=== PATIENT | female | born 1975 | race African-American/Black ===

== ENCOUNTER 2016-09-08 22:42 | Observation (INO) | payer MEDICAID, OTHER ==
[~2016-09-08] VITALS: Ht 170.2 cm; Wt 120.0 kg
[~2016-09-08 22:42] MED LIST: ALPR.25 PO; CIME200 PO; GLUCTAB PO; LEVO75TA41 PO; PROV10TA PO
[2016-09-08 22:44] VITALS: BP 163/98; PULSE 97; RESP 20; TEMP 98.7; O2SAT 100
--- NOTE | 2016-09-08 23:27 | PD ---
HPI Chief Complaint: Chest Pain Time Seen by Provider: 23:12 Travel History International Travel<30 days: No Contact w/Intl Traveler<30days: No Traveled to known affect area: No History of Present Illness HPI The patient is a 41-year-old [place] female who presents emergency department for chest pain. The patient was at work earlier tonight when she developed chest pain. The patient states the chest pain was substernal to left- sided, radiated to the left aspect of the neck and into the left arm. The pain was dull and achy and assisted with mild shortness of breath and nausea. The patient states her last week she has not been feeling well, is had some left scapular pain and left shoulder pain which is been achy in nature. The patient does note her pain is worse with exertion and mildly alleviated at rest. The patient took 4 baby aspirin prior to arrival. The patient does have a history of diabetes and was recently placed on insulin, however, is not taking the insulin because of the side effects she read about. The patient was recently on metformin. The patient denies any known history of coronary artery disease, hypertension, or tobacco use. She does have a history of hyperlipidemia but is not currently treated with medications. She denies any significant early family history of coronary artery disease. PFSH Past Medical History Anxiety: Yes Depression: Yes Heart Rhythm Problems: Yes (HEART PALPITATION) Cardiac Catheterization: No Cardiovascular Problems: Yes (PALPITATIONS) High Cholesterol: Yes Chest Pain: Yes Congestive Heart Failure: No Diabetes: Yes (INSULIN DEPENDENT/METFORMIN) Patient Takes Glucophage: Yes Diminished Hearing: No GERD: Yes Headaches: Yes Immunizations Current: Yes Migraines: Yes Sleep Apnea: Yes Influenza Vaccination: No PNEUMOCCOCAL Vaccine (Year): 2 ?: Not LMP: 08/12/16 : 3 Para: 3 Tubal Ligation: Yes Past Surgical History Abdominal Surgery: Yes (TUBAL) Cholecystectomy: Yes Coronary Artery Bypass Graft: No Gynecologic Surgery: Yes (TUBAL LIGATION) Family History Family Myocardial Infarction: No Social History Alcohol Use: Yes (RARELY) Tobacco Use: No Substance Use: No Allergies-Medications (Allergen,Severity, Reaction): Coded Allergies: Amoxicillin (Verified Allergy, Severe, "HOT FLASHES", 09/08/16) Demerol (Verified Allergy, Severe, RASH, 09/08/16) Toradol (Verified Allergy, Severe, ANXIETY, 09/08/16) Zantac (Verified Allergy, Severe, SOB, 09/08/16) Prilosec (Verified Allergy, Unknown, 09/08/16) Reported Meds & Prescriptions Reported Meds & Active Scripts Active Xanax 0.25 Mg (Alprazolam) 0.25 Mg Tab 0.25 Mg PO Q8 PRN Reported Provera (Medroxyprogesterone Acetate) 10 Mg Tab 10 Mg PO DAILY Levothroid (Levothyroxine Sodium) 75 Mcg Tab 25 Mcg PO DAILY Metformin Hcl (Metformin HCl) 500 Mg Tab 1,000 Mg PO BID Tagamet 200 Mg Tab (Cimetidine) 200 Mg Tab 200 Mg PO BID Review of Systems Except as stated in HPI: all other systems reviewed are Neg General / Constitutional: No: Fever HENT: No: Lightheadedness Cardiovascular: Positive: Chest Pain or Discomfort, No: Diaphoresis Respiratory: Positive: Shortness of Breath Gastrointestinal: Positive: Nausea Musculoskeletal: Positive: Weakness, Pain (left arm pain) Neurologic: No: Focal Abnormalities Physical Exam Narrative GENERAL: Awake, alert, mildly anxious 41-year-old female who appears her stated age and is in no acute respiratory distress. Mildly anxious. SKIN: No obvious rash on exposed skin. HEAD: Atraumatic. Normocephalic. EYES: Pupils equal and round. No scleral icterus. No injection or drainage. ENT: No nasal bleeding or discharge. Mucous membranes pink and moist. NECK: Trachea midline. No JVD. CARDIOVASCULAR: Regular rate and rhythm. No murmur appreciated. Palpation of the left chest wall produces pain, but does not reproduce the pain she has at rest or with exertion. RESPIRATORY: No accessory muscle use. Clear to auscultation. Breath sounds equal bilaterally. GASTROINTESTINAL: Abdomen soft, non-tender, nondistended. No rebound tenderness. MUSCULOSKELETAL: No obvious deformities. No clubbing. No cyanosis. No edema. NEUROLOGICAL: Awake and alert. No obvious cranial nerve deficits. Motor grossly within normal limits. Normal speech. PSYCHIATRIC: Appropriate mood and affect; insight and judgment normal. Data Data Last Documented VS Vital Signs Date Time Temp Pulse Resp B/P Pulse Ox O2 Delivery O2 Flow Rate FiO2 09/08/16 23:23 100 Nasal Cannula 2 09/08/16 22:44 98.7 97 20 163/98 Orders Electrocardiogram (09/08/16 23:20) Ckmb (Isoenzyme) Profile (09/08/16 23:20) Complete Blood Count With Diff (09/08/16 23:20) Comprehensive Metabolic Panel (09/08/16 23:20) Magnesium (Mg) (09/08/16 23:20) Prothrombin Time / Inr (Pt) (09/08/16 23:20) Act Partial Throm Time (Ptt) (09/08/16 23:20) Troponin I (09/08/16 23:20) Lipase (09/08/16 23:20) Chest, Single Ap (09/08/16 23:20) Ecg Monitoring (09/08/16 23:20) Bilateral Bp Monitoring (09/08/16 23:20) Iv Access Insert/Monitor (09/08/16 23:20) Oximetry (09/08/16 23:20) Oxygen Administration (09/08/16 23:20) Morphine Inj (Morphine Inj) (09/08/16 23:30) Nitroglycerin 2% Oint (Nitroglycerin 2% (09/08/16 23:30) Sodium Chloride 0.9% Flush (Ns Flush) (09/08/16 23:30) Sodium Chlorid 0.9% 500 Ml Inj (Ns 500 M (09/08/16 23:30) Ondansetron Inj (Zofran Inj) (09/08/16 23:30) Sodium Chlor 0.9% 1000 Ml Inj (Ns 1000 M (09/09/16 00:15) Labs Laboratory Tests Test 09/08/16 23:30 White Blood Count 8.2 TH/MM3 Red Blood Count 4.64 MIL/MM3 Hemoglobin 12.0 GM/DL Hematocrit 37.6 % Mean Corpuscular Volume 80.9 FL Mean Corpuscular Hemoglobin 25.9 PG Mean Corpuscular Hemoglobin 32.0 % Concent Red Cell Distribution Width 15.4 % Platelet Count 347 TH/MM3 Mean Platelet Volume 8.4 FL Neutrophils (%) (Auto) 53.1 % Lymphocytes (%) (Auto) 37.8 % Monocytes (%) (Auto) 7.0 % Eosinophils (%) (Auto) 0.9 % Basophils (%) (Auto) 1.2 % Neutrophils # (Auto) 4.4 TH/MM3 Lymphocytes # (Auto) 3.1 TH/MM3 Monocytes # (Auto) 0.6 TH/MM3 Eosinophils # (Auto) 0.1 TH/MM3 Basophils # (Auto) 0.1 TH/MM3 CBC Comment DIFF FINAL Differential Comment Prothrombin Time 10.6 SEC Prothromb Time International 1.0 RATIO Ratio Activated Partial 29.6 SEC Thromboplast Time Sodium Level 136 MEQ/L Potassium Level 3.8 MEQ/L Chloride Level 101 MEQ/L Carbon Dioxide Level 25.0 MEQ/L Anion Gap 10 MEQ/L Blood Urea Nitrogen 9 MG/DL Creatinine 1.09 MG/DL Estimat Glomerular Filtration 68 ML/MIN Rate Random Glucose 236 MG/DL Calcium Level 9.3 MG/DL Magnesium Level 1.9 MG/DL Total Bilirubin LESS THAN 0.1 MG/DL Aspartate Amino Transf 9 U/L (AST/SGOT) Alanine Aminotransferase 21 U/L (ALT/SGPT) Alkaline Phosphatase 84 U/L Total Creatine Kinase 64 U/L Troponin I LESS THAN 0.02 NG/ML Total Protein 8.4 GM/DL Albumin 3.7 GM/DL Lipase 184 U/L Exceptions Acute Myocardial Infarction ASA Not Given on Arrival: Already taken by patient MDM Medical Decision Making Medical Screen Exam Complete: Yes Emergency Medical Condition: Yes Medical Record Reviewed: Yes Interpretation(s) EKG reveals normal sinus rhythm with a rate of 83. Inverted T waves noted in lead 3. Laboratory Tests Test 09/08/16 23:30 White Blood Count 8.2 TH/MM3 Red Blood Count 4.64 MIL/MM3 Hemoglobin 12.0 GM/DL Hematocrit 37.6 % Mean Corpuscular Volume 80.9 FL Mean Corpuscular Hemoglobin 25.9 PG Mean Corpuscular Hemoglobin 32.0 % Concent Red Cell Distribution Width 15.4 % Platelet Count 347 TH/MM3 Mean Platelet Volume 8.4 FL Neutrophils (%) (Auto) 53.1 % Lymphocytes (%) (Auto) 37.8 % Monocytes (%) (Auto) 7.0 % Eosinophils (%) (Auto) 0.9 % Basophils (%) (Auto) 1.2 % Neutrophils # (Auto) 4.4 TH/MM3 Lymphocytes # (Auto) 3.1 TH/MM3 Monocytes # (Auto) 0.6 TH/MM3 Eosinophils # (Auto) 0.1 TH/MM3 Basophils # (Auto) 0.1 TH/MM3 CBC Comment DIFF FINAL Differential Comment Prothrombin Time 10.6 SEC Prothromb Time International 1.0 RATIO Ratio Activated Partial 29.6 SEC Thromboplast Time Sodium Level 136 MEQ/L Potassium Level 3.8 MEQ/L Chloride Level 101 MEQ/L Carbon Dioxide Level 25.0 MEQ/L Anion Gap 10 MEQ/L Blood Urea Nitrogen 9 MG/DL Creatinine 1.09 MG/DL Estimat Glomerular Filtration 68 ML/MIN Rate Random Glucose 236 MG/DL Calcium Level 9.3 MG/DL Magnesium Level 1.9 MG/DL Total Bilirubin LESS THAN 0.1 MG/DL Aspartate Amino Transf 9 U/L (AST/SGOT) Alanine Aminotransferase 21 U/L (ALT/SGPT) Alkaline Phosphatase 84 U/L Total Creatine Kinase 64 U/L Troponin I LESS THAN 0.02 NG/ML Total Protein 8.4 GM/DL Albumin 3.7 GM/DL Lipase 184 U/L Chest x-rays unremarkable Differential Diagnosis differential diagnosis includes acute coronary syndrome, GERD, esophageal spasm , anxiety, pulmonary embolism, musculoskeletal pain. Narrative Course IV was established, labs are drawn and sent, and the patient was placed on cardiac telemetry monitoring and continuous pulse oximetry monitoring. EKG was ordered and interpreted. The patient took 4 baby aspirin prior to arrival, therefore, was administered morphine, Zofran, and Nitropaste in the emergency department. Chest x-ray was obtained. Chest x-ray was unremarkable. EKG revealed normal sinus rhythm with inverted T waves in lead 3, no other evidence of ischemia. The patient's initial troponin was negative. I reviewed the EMR, the patient had a negative nuclear medicine myocardial perfusion scan performed on May 31, 2012 which was unremarkable, revealed an EF of 54%. The patient does have risk factors, hypertension, blood pressure was elevated upon arrival, and diabetes. She also has a history of mildly elevated cholesterol per her report. The patient was reevaluated after the initial set of troponins , she still complained of mild nausea and "not feeling well". The patient will be 23 hour observation to the chest pain Center. There is no hypoxia or significant tachycardia, I doubt pulmonary embolism. Physician Communication Physician Communication The patient will be 23 hour observation to the chest pain center for serial cardiac enzymes and further evaluation by cardiology. Diagnosis Primary Impression: Chest pain Qualified Code: R07.9 - Chest pain, unspecified type Admitting Information Admitting Physician Requests: Observation Condition: Stable Pierre Lopez MD Sep 08, 2016 23:27
[2016-09-08] MEDS ORDERED: NITROGLYCERIN 2% OINT 1 GM PACKET TOP ONE (23:30)
[2016-09-08] MEDS ORDERED: SODIUM CHLORIDE 0.9% FLUSH 10 ML FLUSH IVF PRN (23:30)
[2016-09-08] MEDS ORDERED: MORPHINE SULFATE 4 MG/ML INJ IV PUSH ONE (23:30)
[2016-09-08] MEDS ORDERED: SODIUM CHLORID 0.9% 500 ML INJ 500 ML IV ONE (23:30)
[2016-09-08] MEDS ORDERED: ONDANSETRON HCL 4 MG/2 ML VIAL IV PUSH ONE (23:30)
[2016-09-08 23:52] LABS: AUTOMATED NEUTROPHIL # 4.4 TH/MM3 (1.8-7.7); BASOPHIL # 0.1 TH/MM3 (0-0.2); BASOPHIL % 1.2 % (0.0-2.0); EOSINOPHIL # 0.1 TH/MM3 (0-0.4); EOSINOPHIL % 0.9 % (0.0-4.0); HEMATOCRIT 37.6 % (35.0-46.0); HEMO FLAGS DIFF FINAL; LYMPH % 37.8 % (9.0-44.0); LYMPHOCYTE # 3.1 TH/MM3 (1.0-4.8); MEAN CELL VOLUME 80.9 FL (80.0-100.0); MEAN CORPUSCULAR HEMOGLOBIN 25.9 PG (27.0-34.0); NEUT % 53.1 % (16.0-70.0); PLATELET COUNT 347 TH/MM3 (150-450); RED BLOOD COUNT 4.64 MIL/MM3 (4.00-5.30); RED CELL DISTRIBUTION WIDTH 15.4 % (11.6-17.2); WHITE BLOOD COUNT 8.2 TH/MM3 (4.0-11.0)
[2016-09-08 23:57] LABS: APTT (PATIENT) 29.6 SEC (24.3-30.1); PROTHROMBIN TIME - PATIENT 10.6 SEC (9.8-11.6)
[2016-09-09] VITALS (11 sets, daily range): BP systolic 96–130; BP diastolic 56–86; PULSE 50–91; RESP 18–20; TEMP 97.5–98.9; O2SAT 94–100
[2016-09-09 00:08] LABS: ANION GAP 10 MEQ/L (5-15); AST (GOT) 9 U/L (15-37); BLOOD UREA NITROGEN 9 MG/DL (7-18); CHLORIDE 101 MEQ/L (98-107); GLOMERULAR FILTRATION RATE 68 ML/MIN (>89); MAGNESIUM 1.9 MG/DL (1.5-2.5); POTASSIUM 3.8 MEQ/L (3.5-5.1); SODIUM (NA) 136 MEQ/L (136-145)
[2016-09-09 00:13] LABS: ALKALINE PHOSPHATASE 84 U/L (45-117); ALT (GPT) 21 U/L (10-53); TOTAL BILIRUBIN ADULT LESS THAN 0.1 MG/DL (0.2-1.0)
[2016-09-09 00:14] LABS: CREATINE KINASE 64 U/L (26-192)
[2016-09-09] MEDS ORDERED: SODIUM CHLOR 0.9% 1000 ML INJ 1,000 ML IV ONE (00:15)
[2016-09-09] MEDS ORDERED: MORPHINE SULFATE 4 MG/ML INJ IV PRN (00:30)
[2016-09-09] MEDS ORDERED: ACETAMINOPHEN 500 MG CPLT PO PRN (00:30)
[2016-09-09] MEDS ORDERED: SODIUM CHLORIDE 0.9% FLUSH 10 ML FLUSH IV FLUSH PRN (00:30)
[2016-09-09] MEDS ORDERED: ONDANSETRON HCL 4 MG/2 ML VIAL IV PRN (00:30)
[2016-09-09] MEDS ORDERED: NITROGLYCERIN 0.4 MG SL 25 TABS/BTL SL PRN (00:30)
[2016-09-09] MEDS ORDERED: ACETAMINOPHEN/HYDROcodone 325 MG/7.5 MG TAB PO PRN (00:30)
--- NOTE | 2016-09-09 00:47 | RADRPT ---
EXAM DATE/TIME: 09/08/2016 23:36 [facility] COMPARISON: CHEST SINGLE AP, September 10, 2013, 22:47. INDICATIONS : Chest pain. MEDICAL HISTORY : None. SURGICAL HISTORY : None. ENCOUNTER: Initial ACUITY: 1 day PAIN SCORE: 7/10 LOCATION: Bilateral chest FINDINGS: A single view of the chest demonstrates the lungs to be symmetrically aerated without evidence of mas s, infiltrate or effusion. The cardiomediastinal contours are unremarkable. Osseous structures are intact. CONCLUSION: No acute disease. Donnie Doherty MD on September 09, 2016 at 0:45 Board Certified Radiologist. This report was verified electronically.
[2016-09-09] MEDS ORDERED: LEVO75TA3 PO (02:09)
[2016-09-09] MEDS ORDERED: PROV10TA PO (02:09)
[2016-09-09] MEDS ORDERED: METF1000 PO (02:09)
[2016-09-09] MEDS ORDERED: CIME200T23 PO (02:09)
[2016-09-09 03:28] LABS: CREATINE KINASE 54 U/L (26-192)
[2016-09-09 06:03] LABS: CREATINE KINASE 42 U/L (26-192)
[2016-09-09] MEDS ORDERED: SODIUM CHLORIDE 0.9% FLUSH 10 ML FLUSH IV FLUSH SCH (09:00)
[2016-09-09] MEDS ORDERED: ASPIRIN 325 MG TAB PO SCH (09:00)
--- NOTE | 2016-09-09 10:52 | HHI.HP ---
HPI Primary Care Physician Layo Jj DO Chief Complaint Chest pain History of Present Illness This is a 41-year-old female that presents to the ED with a clinical left-sided chest discomfort that radiated down her left arm into her back. It began yesterday. The last about 20 minutes but recurred a couple more times. Certain movements seem to worsen it. She was short of breath with it at times. No nausea or diaphoresis. Denies recent illness. Denies fevers or chills. Review of Systems General: Patient denies fevers, chills recent, and recent travel HEENT: Patient denies headache, sore throat, difficulty swallowing. Cardiovascular: Has the chest discomfort as mentioned above. Denies sensation of heart beating rapidly or irregularly. No syncope. Denies diaphoresis. Respiratory: She was little short of breath. She states also at times it hurts more to take a deep breath. Denies coughing wheezing or hemoptysis. GI: Patient denies nausea, vomiting, diarrhea, abdominal pain, bloody stools. Musculoskeletal: Patient denies joint pain or edema. Denies calf pain or edema. Complains of a left-sided back pain worsened with movements. Neurovascular: Patient denies numbness, tingling, weakness in extremities. Denies headache. Endocrine: Denies polyuria and polydipsia. Hematologic: Denies easy bruising. Skin: Denies rash or itching. Past Family Social History Allergies: Coded Allergies: Amoxicillin (Verified Allergy, Severe, "HOT FLASHES", 09/08/16) Demerol (Verified Allergy, Severe, RASH, 09/08/16) Toradol (Verified Allergy, Severe, ANXIETY, 09/08/16) Zantac (Verified Allergy, Severe, SOB, 09/08/16) Prilosec (Verified Allergy, Unknown, 09/08/16) Past Medical History Diabetes, hypothyroidism. She states she has some kidney issues but does not really nothing more specific about it. Denies known CAD and hypertension. Past Surgical History Cholecystectomy and tubal ligation. Reported Medications Reported Meds & Active Scripts Active Reported Metformin (Metformin HCl) 1,000 Mg Tab 1,000 Mg PO BIDPC With meals Provera (Medroxyprogesterone Acetate) 10 Mg Tab 10 Mg PO DAILY Start day 21 Levothyroxine (Levothyroxine Sodium) 75 Mcg Tab 75 Mcg PO DAILY Tagamet Hb (Cimetidine) 200 Mg Tab 200 Mg PO DAILY Active Ordered Medications Current Medications Medications (Trade) Dose Ordered Sig/Kriss Route Start Time Stop Time Status Last Admin (NS Flush) 2 ml UNSCH PRN IV FLUSH 09/09/16 00:30 (NS Flush) 2 ml BID IV FLUSH 09/09/16 09:00 09/09/16 08:37 (Tylenol) 500 mg Q4H PRN PO 09/09/16 00:30 09/09/16 05:47 ([place] 7.5-325 Mg) 1 tab Q4H PRN PO 09/09/16 00:30 (Morphine Inj) 2 mg Q4H PRN IV 09/09/16 00:30 (Zofran Inj) 4 mg Q6H PRN IV 09/09/16 00:30 (Nitrostat Sl) 0.4 mg Q5M PRN SL 09/09/16 00:30 (Aspirin) 325 mg DAILY PO 09/09/16 09:00 09/09/16 08:36 Family History Denies family history of CAD. Social History Patient is a nonsmoker. Physical Exam Vital Signs Vital Signs Date Time Temp Pulse Resp B/P Pulse Ox O2 Delivery O2 Flow Rate FiO2 09/09/16 07:14 98.7 91 19 110/57 94 09/09/16 05:25 98.5 88 20 96/56 97 09/09/16 03:03 83 09/09/16 02:37 98.9 86 20 118/64 95 09/09/16 02:00 88 18 130/74 100 Nasal Cannula 2 09/09/16 01:54 16 09/09/16 01:00 89 18 129/82 100 Nasal Cannula 2 09/09/16 00:51 99 Nasal Cannula 2.00 09/09/16 00:00 86 20 123/86 98 Nasal Cannula 2 09/08/16 23:23 100 Nasal Cannula 2 09/08/16 22:44 98.7 97 20 163/98 100 Physical Exam GENERAL: This is a well-nourished, well-developed patient, in no apparent distress. Patient speaks in clear complete sentences. Patient is pleasant. HEENT: Head is atraumatic and normocephalic. Neck is supple without lymphadenopathy and trachea is midline. No JVD or carotid bruits. CARDIOVASCULAR: Regular rate and rhythm without murmurs, gallops, or rubs. RESPIRATORY: Clear to auscultation. Breath sounds equal bilaterally. No wheezes , rales, or rhonchi. Chest wall is nontender. No use of accessory muscles. GASTROINTESTINAL: Abdomen is nontender, nondistended. Abdomen soft. No obvious pulsatile mass or bruit. No CVA tenderness. Strong femoral pulses bilaterally. Normal bowel sounds in all quadrants. MUSCULOSKELETAL: Patient is moving upper and lower extremities freely. No calf tenderness or edema, no Homans sign. Strong pulses in upper and lower extremities. NEUROLOGICAL: Patient is alert and oriented. Cranial nerves 2-12 are grossly intact. No focal deficits and speech is clear. SKIN: No rash and turgor is normal. Laboratory Laboratory Tests Test 09/08/16 09/09/16 09/09/16 09/09/16 23:30 02:30 05:17 08:48 White Blood Count 8.2 Red Blood Count 4.64 Hemoglobin 12.0 Hematocrit 37.6 Mean Corpuscular Volume 80.9 Mean Corpuscular Hemoglobin 25.9 Mean Corpuscular Hemoglobin 32.0 Concent Red Cell Distribution Width 15.4 Platelet Count 347 Mean Platelet Volume 8.4 Neutrophils (%) (Auto) 53.1 Lymphocytes (%) (Auto) 37.8 Monocytes (%) (Auto) 7.0 Eosinophils (%) (Auto) 0.9 Basophils (%) (Auto) 1.2 Neutrophils # (Auto) 4.4 Lymphocytes # (Auto) 3.1 Monocytes # (Auto) 0.6 Eosinophils # (Auto) 0.1 Basophils # (Auto) 0.1 CBC Comment DIFF FINAL Differential Comment Prothrombin Time 10.6 Prothromb Time International 1.0 Ratio Activated Partial 29.6 Thromboplast Time Sodium Level 136 Potassium Level 3.8 Chloride Level 101 Carbon Dioxide Level 25.0 Anion Gap 10 Blood Urea Nitrogen 9 Creatinine 1.09 Estimat Glomerular Filtration 68 Rate Random Glucose 236 Calcium Level 9.3 Magnesium Level 1.9 Total Bilirubin LESS THAN 0.1 Aspartate Amino Transf 9 (AST/SGOT) Alanine Aminotransferase 21 (ALT/SGPT) Alkaline Phosphatase 84 Total Creatine Kinase 64 54 42 Troponin I LESS THAN 0.02 LESS THAN 0.02 LESS THAN 0.02 Total Protein 8.4 Albumin 3.7 Lipase 184 D-Dimer Quantitative (PE/DVT) 0.36 Result Diagram: 09/08/16 2330 09/08/16 2330 Imaging Last 24 hours Impressions Chest X-Ray 09/08/16 2320 Signed Impressions: Service Date/Time: Thursday, September 08, 2016 23:36 - CONCLUSION: No acute disease. Donnie Doherty MD Course EKGs have sinus rhythm without significant ST segment depressions or elevations. Assessment and Plan Assessment and Plan * Chest pain: Patient had serial cardiac enzymes and EKGs for ruling out purposes. D-dimer was negative. Urine beta-hCG is negative. She has been seen by Dr. Chester Best of cardiology in the chest pain center and will undergo a Lexiscan. She'll likely be discharged home if her stress test were to be nonischemic. She should follow-up with her primary care physician. * Diabetes: We'll cover with sliding S[place] coverage. She should follow diabetic diet. * Hypothyroidism: Continue current medication. Patient is agreeable to this plan. She is stable at this time. Santos Naylor Sep 09, 2016 10:52
[2016-09-09] MEDS ORDERED: REGADENOSON INJ 0.4 MG/5 ML SYR ONE (11:30)
[2016-09-09] MEDS ORDERED: AMINOPHYLLINE INJ 250 MG/10 ML VIAL ONE (11:49)
[2016-09-09] MEDS ORDERED: DEXTROSE 50% IN WATER 50 ML VIAL(D50) IV PRN (12:30)
[2016-09-09] MEDS ORDERED: GLUCAGON 1 MG/ML VIAL IM/SQ PRN (12:30)
--- NOTE | 2016-09-09 12:54 | RADRPT ---
EXAM DATE/TIME: 09/09/2016 10:31 [facility] COMPARISON: MYOCARDIAL PERF PHARM SPECT, GATED W/EF, May 31, 2012, 11:32. INDICATIONS : Substernal chest pain radiating to left neck and arm with dyspnea and nausea. Angina. DOSE: 35 mCi Tc99m Myoview at stress. 11 mCi Tc99m Myoview at rest. 0.4 mg Lexiscan STRESS SYMPTOMS: Chest pain and dyspnea. MEDICATIONS: 1.) 100 mg Aminophylline IV EJECTION FRACTION: 55% MEDICAL HISTORY : Gastroesophageal reflux disease. Diabetes mellitus type 2. SURGICAL HISTORY : Cholecystectomy. Tubal ligation. ENCOUNTER: Initial ACUITY: 1 day PAIN SCALE: 4/10 LOCATION: Substernal chest TECHNIQUE: The patient underwent pharmacologic stress with infusion of prescribed dose. Continuous ECG tracing was monitored during stress. Gated SPECT imaging was performed after stress and conventional SPECT i maging was performed at rest. The examination was performed on a SPECT/CT scanner, both attenuation and non-corrected datasets were reviewed. FINDINGS: DISTRIBUTION: The maximum perfused segment at stress is in the anterolateral wall. PERFUSION STUDY: The pattern of perfusion at stress shows some apical thinning. No reversibility to suggest ischemia o r infarct, however. GATED STUDY: There is intact wall motion and thickening without hypokinetic or dyskinetic segments. CONCLUSION: 1. Minimal apical thinning. No reversibility to suggest ischemia. 2. Adequate wall motion throughout with an estimated ejection fraction of 55%. RISK CATEGORY: Low (<1% Annual Mortality Rate) Bautista Clinton MD on September 09, 2016 at 12:45 Board Certified Radiologist. This report was verified electronically.
--- NOTE | 2016-09-09 13:29 | HHI.DCPOC ---
Discharge Care Plan Diagnosis: (1) Chest pain (2) Hypertension (3) DM (diabetes mellitus) (4) Obesity Goals to Promote Your Health * To prevent worsening of your condition and complications * To maintain your health at the optimal level Directions to Meet Your Goals Take your medications as prescribed Follow your dietary instruction Follow activity as directed Keep your appointments as scheduled Take your immunizations and boosters as scheduled If your symptoms worsen call your PCP, if no PCP go to Urgent Care Center or Emergency Room Smoking is Dangerous to Your Health. Avoid second hand smoke Call the 24-hour hour crisis hotline for domestic abuse at Santos Naylor Sep 09, 2016 13:29
--- NOTE | 2016-09-09 13:35 | EKG ---
Date Performed: 09/09/2016 Time Performed: 03:25:23 PTAGE: 41 years EKG: Sinus rhythm BORDERLINE LEFT AXIS DEVIATION BORDERLINE ECG PREVIOUS TRACING : 11/26/2013 02.42 Since previous tracing, no significant change noted DOCTOR: Chester Best Interpretating Date/Time 09/09/2016 13:34:11
--- NOTE | 2016-09-09 13:35 | EKG ---
Date Performed: 09/09/2016 Time Performed: 05:30:10 PTAGE: 41 years EKG: Sinus rhythm BORDERLINE LEFT AXIS DEVIATION BORDERLINE ECG PREVIOUS TRACING : 09/09/2016 03.25 Since previous tracing, no significant change noted DOCTOR: Chester Best Interpretating Date/Time 09/09/2016 13:33:31
--- NOTE | 2016-09-09 13:37 | EKG ---
Date Performed: 09/08/2016 Time Performed: 23:22:47 PTAGE: 41 years EKG: Sinus rhythm MARKED LEFT AXIS DEVIATION ABNORMAL ECG NO PREVIOUS TRACING DOCTOR: Chester Best Interpretating Date/Time 09/09/2016 13:36:34
--- NOTE | 2016-09-09 13:46 | TR ---
Date Performed: 09/09/2016 Time Performed: 11:14:38 DOCTOR: Chester Best DRUG LIST: CLINICAL HISTORY: REASON FOR TEST: CHEST PAIN REASON FOR ENDING: OBSERVATION: CONCLUSION: Lexiscan stress test was performed under standard four minute protocol. [place]ion[place] e was injected one minute prior to ending the test. No electrocardiographic abormalities were present to suggest ischemia. Nuclear imaging and interpretation are pending. COMMENTS:
[2016-09-09] MEDS ORDERED: INSULIN ASPART SUPPLEMENTAL SCALE SQ SCH (16:00)
== END 2016-09-09 16:14 | disposition home or self-care (01) ==
LOC: NEPB 22:42 → NEDA 09-09 00:27 → NEPGCP 09-09 02:31
PROVIDERS: ADMIT Internal Medicine Interventional Cardiology; ATTEND Internal Medicine Interventional Cardiology
DX: R07.9 Chest pain, unspecified (principal); M54.2 Cervicalgia; M79.622 Pain in left upper arm; R11.0 Nausea; R06.02 Shortness of breath; E11.9 Type 2 diabetes mellitus without complications; Z79.4 Long term (current) use of insulin; E78.5 Hyperlipidemia, unspecified; R00.2 Palpitations; E78.00 Pure hypercholesterolemia, unspecified; K21.9 Gastro-esophageal reflux disease without esophagitis; G43.909 Migraine, unspecified, not intractable, without status migrainosus; G47.30 Sleep apnea, unspecified; Z79.899 Other long term (current) drug therapy; I10 Essential (primary) hypertension; R94.31 Abnormal electrocardiogram [ECG] [EKG]
CPT/HCPCS: 71010; 78452; 80053; 82550; 83690; 83735; 84484; 85025; 85379; 85610; 85730; 93005; 93017; 96374; 96375; 99285; A9502; G0378; J0280; J2270; J2405; J2785; J7030; J7040

== ENCOUNTER 2016-10-15 01:53 | Emergency (ER) | payer MEDICAID, OTHER ==
[~2016-10-15] VITALS: Ht 170.2 cm; Wt 123.0 kg
[~2016-10-15 01:53] MED LIST changes: -ALPR.25 PO; -CIME200 PO; +CIME200T23 PO; -GLUCTAB PO; +LEVO75TA3 PO; -LEVO75TA41 PO; +METF1000 PO
[2016-10-15 01:59] VITALS: BP 124/84; PULSE 87; RESP 16; TEMP 98.9; O2SAT 100
[2016-10-15 02:09] VITALS: BP 124/84; PULSE 87; RESP 18; TEMP 98.9; O2SAT 100
--- NOTE | 2016-10-15 02:28 | PD ---
HPI Chief Complaint: ENT Complaint Time Seen by Provider: 02:16 Travel History International Travel<30 days: No Contact w/Intl Traveler<30days: No Traveled to known affect area: No History of Present Illness HPI The patient is a 41-year-old female that complains of dental pain on tooth #17. It is been going on for about a week. She saw a dentist who gave her amoxicillin and, despite being on amoxicillin 5-6 days, she is not getting any relief. She wants a different antibiotic. She has been taking Motrin 600-800 mg 3 times daily. She has had a tubal ligation and cannot be . She denies any fever. She also has a sore throat but this may be from the tooth. The throat itself was not tender, just below the tooth on the left. PFSH Past Medical History Anxiety: Yes Depression: Yes Heart Rhythm Problems: No Cardiac Catheterization: No Cardiovascular Problems: Yes High Cholesterol: No Chest Pain: Yes Congestive Heart Failure: No Diabetes: Yes Patient Takes Glucophage: Yes Diminished Hearing: No GERD: Yes Headaches: Yes Immunizations Current: Yes Migraines: Yes Sleep Apnea: Yes Tetanus Vaccination: Unknown Influenza Vaccination: No PNEUMOCCOCAL Vaccine (Year): 2 ?: Not LMP: 09/15/16 : 3 Para: 3 Tubal Ligation: Yes Past Surgical History Abdominal Surgery: Yes (TUBAL) Cholecystectomy: Yes Coronary Artery Bypass Graft: No Gynecologic Surgery: Yes (TUBAL LIGATION) Family History Family Myocardial Infarction: Yes Social History Alcohol Use: Yes (RARELY) Tobacco Use: No Substance Use: No Allergies-Medications (Allergen,Severity, Reaction): Coded Allergies: Amoxicillin (Verified Allergy, Severe, "HOT FLASHES", 10/15/16) Demerol (Verified Allergy, Severe, RASH, 10/15/16) Toradol (Verified Allergy, Severe, ANXIETY, 10/15/16) Zantac (Verified Allergy, Severe, SOB, 10/15/16) Prilosec (Verified Allergy, Unknown, 10/15/16) Reported Meds & Prescriptions Reported Meds & Active Scripts Active Reported Metformin (Metformin HCl) 1,000 Mg Tab 1,000 Mg PO BIDPC With meals Provera (Medroxyprogesterone Acetate) 10 Mg Tab 10 Mg PO DAILY Start day 21 Levothyroxine (Levothyroxine Sodium) 75 Mcg Tab 75 Mcg PO DAILY Tagamet Hb (Cimetidine) 200 Mg Tab 200 Mg PO DAILY Review of Systems Except as stated in HPI: all other systems reviewed are Neg Physical Exam Narrative GENERAL: Well-nourished, alert and oriented, obese patient in moderate apparent distress with her dental pain. Her vital signs are normal. SKIN: Focused skin assessment warm/dry. HEAD: Normocephalic. EYES: No scleral icterus. No injection or drainage. NECK: Supple, trachea midline. No JVD or lymphadenopathy. CARDIOVASCULAR: Regular rate and rhythm without murmurs, gallops, or rubs. RESPIRATORY: Breath sounds equal bilaterally. No accessory muscle use. GASTROINTESTINAL: Abdomen soft, non-tender, nondistended. MUSCULOSKELETAL: No cyanosis, or edema. BACK: Nontender without obvious deformity. No CVA tenderness. DENTAL: No loose or chipped teeth. No malocclusion. Tooth #17 is exquisitely tender but no drainable abscesses are noted. The patient's throat. Appears to be around the left drainage from the tooth and is likely related to the tooth pain. ENT: The tympanic membranes are clear and there is no TMJ tenderness present. The throat is clear without erythema, abscess or exudate area Data Data Last Documented VS Vital Signs Date Time Temp Pulse Resp B/P Pulse Ox O2 Delivery O2 Flow Rate FiO2 10/15/16 02:12 87 18 10/15/16 02:09 98.9 124/84 100 MDM Medical Decision Making Medical Screen Exam Complete: Yes Emergency Medical Condition: Yes Medical Record Reviewed: Yes Differential Diagnosis Dental infection, TMJ pain, pharyngitis, ear pain Narrative Course The patient has a dental infection. Her throat appears normal. There appears to be no other cause for this pain other than dental. The patient likely is taking too much ibuprofen and will be given Percocet 5 for pain so that she can reduce her ibuprofen dosage. Plan: The patient wants a different antibiotic will be given Cleocin 300 mg 4 times daily. Diagnosis Primary Impression: Pain, dental Additional Instructions: The Cleocin is taken one tablet 4 times daily. We will give you your first dose tonight. Take no more ibuprofen than 600 mg 3 times daily. Breakthrough pain should be treated with the Percocet 5. He not drink alcohol or drive on the Percocet 5. Follow-up with your dentist as scheduled. Med/Other Pt SpecificInfo: Prescription(s) given Scripts Clindamycin (Cleocin)300 Mg Mhe643 Mg PO Q6H 10 Days Ref 0 Prov:Art Saleh MD 10/15/16 Oxycodone-Acetaminophen (Percocet)5-325 mg Tab1 Tab PO Q4H PRN (PAIN) #30 TAB Ref 0 Prov:Art Saleh MD 10/15/16 Disposition: 01 DISCHARGE HOME Condition: Stable Art Saleh MD October 15, 2016 02:28
[2016-10-15] MEDS ORDERED: PERC5TAB12 PO (02:36)
[2016-10-15] MEDS ORDERED: CLEO300C2 PO (02:36)
[2016-10-15] MEDS ORDERED: CLINDAMYCIN 150 MG CAP PO ONE (02:45)
[2016-10-15 02:47] VITALS: BP_SYST 12; BP_SYST 124; BP_DIAS 78; PULSE 80; RESP 18; O2SAT 99
== END 2016-10-15 02:54 | disposition home or self-care (01) ==
LOC: PHED 01:53
DX: K04.7 Periapical abscess without sinus (principal); K08.89 Other specified disorders of teeth and supporting structures; E11.9 Type 2 diabetes mellitus without complications; Z79.84 Long term (current) use of oral hypoglycemic drugs
CPT/HCPCS: 99282

== ENCOUNTER 2017-03-04 23:15 | Emergency (ER) | payer MEDICAID ==
[~2017-03-04] VITALS: Ht 170.2 cm; Wt 123.7 kg
[~2017-03-04 23:15] MED LIST changes: +CLEO300C2 PO; +PERC5TAB12 PO
[2017-03-04 23:20] VITALS: BP 142/75; PULSE 86; RESP 20; TEMP 99.4; O2SAT 98
[2017-03-04] MEDS ORDERED: SODIUM CHLORIDE 0.9% FLUSH 10 ML FLUSH IVF PRN (23:45)
--- NOTE | 2017-03-04 23:52 | PD ---
HPI Chief Complaint: wisdom tooth pain, palpitations Time Seen by Provider: 23:31 Travel History International Travel<30 days: No Contact w/Intl Traveler<30days: No Traveled to known affect area: No History of Present Illness HPI The patient is a 42-year-old female that states she had a dental extraction on her left lower most molar at 4 PM today. They apparently used lidocaine and the local anesthesia. The patient states she had palpitations during the extraction. She states he feels palpitations now. The patient has been here for anxiety/palpitations in the past. She states that amoxicillin gives her "hot flashes". She apparently has been on clindamycin in the past without a problem. She denies any history of heart disease. She states the instruction sheet that she was given told her to take 2 Advil and nothing else and she says this is inadequate for the pain. She was not given any prescription pain medications or antibiotics. The patient states she gets anxiety with ketorolac. PFSH Past Medical History Anxiety: Yes Depression: Yes Heart Rhythm Problems: No Cardiac Catheterization: No Cardiovascular Problems: Yes High Cholesterol: No Chest Pain: Yes Congestive Heart Failure: No Diabetes: Yes Diminished Hearing: No GERD: Yes Headaches: Yes Immunizations Current: Yes Migraines: Yes Sleep Apnea: Yes PNEUMOCCOCAL Vaccine (Year): 2 : 3 Para: 3 Tubal Ligation: Yes Past Surgical History Abdominal Surgery: Yes (TUBAL) Cholecystectomy: Yes Coronary Artery Bypass Graft: No Gynecologic Surgery: Yes (TUBAL LIGATION) Social History Alcohol Use: Yes (RARELY) Tobacco Use: No Substance Use: No Allergies-Medications (Allergen,Severity, Reaction): Coded Allergies: amoxicillin (Unverified Allergy, Severe, "HOT FLASHES", 01/26/17) ketorolac (Unverified Allergy, Severe, ANXIETY, 01/26/17) meperidine (Unverified Allergy, Severe, RASH, 01/26/17) ranitidine (Unverified Allergy, Severe, SOB, 01/26/17) omeprazole (Unverified Allergy, Unknown, 01/26/17) Reported Meds & Prescriptions Reported Meds & Active Scripts Active Reported Levothyroxine (Levothyroxine Sodium) 50 Mcg Tab 50 Mcg PO DAILY Lisinopril 10 Mg Tab 10 Mg PO DAILY Lantus Inj (Insulin Glargine) 1,000 Unit/10 Ml Vial 38 Units SQ HS Metformin (Metformin HCl) 1,000 Mg Tab 1,000 Mg PO BIDPC With meals Tagamet Hb (Cimetidine) 200 Mg Tab 200 Mg PO DAILY Review of Systems Except as stated in HPI: all other systems reviewed are Neg Physical Exam Narrative GENERAL: The patient is alert, anxious, oriented 3, obese in slight apparent distress with her dental pain. Her vital signs are normal. SKIN: Focused skin assessment warm/dry. HEAD: Atraumatic. Normocephalic. EYES: Pupils equal and round. No scleral icterus. No injection or drainage. ENT: No nasal bleeding or discharge. Mucous membranes pink and moist. NECK: Trachea midline. No JVD. CARDIOVASCULAR: Regular rate and rhythm. No murmur appreciated. RESPIRATORY: No accessory muscle use. Clear to auscultation. Breath sounds equal bilaterally. GASTROINTESTINAL: Abdomen soft, non-tender, nondistended. Hepatic and splenic margins not palpable. MUSCULOSKELETAL: No obvious deformities. No clubbing. No cyanosis. No edema. NEUROLOGICAL: Awake and alert. No obvious cranial nerve deficits. Motor grossly within normal limits. Normal speech. PSYCHIATRIC: Appropriate mood and affect; insight and judgment normal. DENTAL: No loose or chipped teeth. No malocclusion. The left lower most wisdom tooth has been removed and the socket appears clean. Data Data Last Documented VS Vital Signs Date Time Temp Pulse Resp B/P (MAP) Pulse Ox O2 Delivery O2 Flow Rate FiO2 03/05/17 00:04 20 03/05/17 00:03 83 154/88 (110) 99 03/04/17 23:53 Room Air 03/04/17 23:20 99.4 Orders Orders Electrocardiogram (03/04/17 23:31) Basic Metabolic Panel (Bmp) (03/04/17 23:31) Ckmb (Isoenzyme) Profile (03/04/17 23:31) Complete Blood Count With Diff (03/04/17 23:31) Magnesium (Mg) (03/04/17 23:31) Troponin I (03/04/17 23:31) Ecg Monitoring (03/04/17 23:31) Iv Access Insert/Monitor (03/04/17 23:31) Oximetry (03/04/17 23:31) Oxygen Administration (03/04/17 23:31) Sodium Chloride 0.9% Flush (Ns Flush) (03/04/17 23:45) Chest, Pa & Lat (03/04/17 23:31) Beta Hcg (Quant/Titer) (03/04/17 23:31) Ketorolac Inj (Toradol Inj) (03/05/17 00:00) Ondansetron Inj (Zofran Inj) (03/05/17 00:15) Hydromorphone Pf Inj (Dilaudid Pf Inj) (03/05/17 00:15) Clindamycin Inj (Cleocin Inj) (03/05/17 00:15) Labs Laboratory Tests Test 03/04/17 23:45 White Blood Count 8.9 TH/MM3 Red Blood Count 4.29 MIL/MM3 Hemoglobin 11.1 GM/DL Hematocrit 34.4 % Mean Corpuscular Volume 80.2 FL Mean Corpuscular Hemoglobin 25.9 PG Mean Corpuscular Hemoglobin Concent 32.3 % Red Cell Distribution Width 14.7 % Platelet Count 413 TH/MM3 Mean Platelet Volume 8.1 FL Neutrophils (%) (Auto) 62.8 % Lymphocytes (%) (Auto) 24.4 % Monocytes (%) (Auto) 7.9 % Eosinophils (%) (Auto) 1.0 % Basophils (%) (Auto) 3.9 % Neutrophils # (Auto) 5.6 TH/MM3 Lymphocytes # (Auto) 2.2 TH/MM3 Monocytes # (Auto) 0.7 TH/MM3 Eosinophils # (Auto) 0.1 TH/MM3 Basophils # (Auto) 0.3 TH/MM3 CBC Comment DIFF FINAL Differential Comment Blood Urea Nitrogen 11 MG/DL Creatinine 0.82 MG/DL Random Glucose 182 MG/DL Calcium Level 9.3 MG/DL Magnesium Level 2.2 MG/DL Sodium Level 138 MEQ/L Potassium Level 3.8 MEQ/L Chloride Level 103 MEQ/L Carbon Dioxide Level 27.3 MEQ/L Anion Gap 8 MEQ/L Estimat Glomerular Filtration Rate 93 ML/MIN Total Creatine Kinase 80 U/L Troponin I LESS THAN 0.02 NG/ML Human Chorionic Gonadotropin, Quant LESS THAN 1 MIU/ML MDM Medical Decision Making Medical Screen Exam Complete: Yes Emergency Medical Condition: Yes Medical Record Reviewed: Yes Interpretation(s) The chest x-ray shows no acute cardiopulmonary disease. The EKG shows sinus rhythm with a rate of [address] elevation or depression. The troponin I is normal and the beta-hCG is less than 1. The CBC is normal except for hemoglobin of 11.1 and hematocrit of 34.4. The basic metabolic profile shows a glucose of 182 Differential Diagnosis Dry socket pain, nonspecific dental pain, anxiety, palpitations etiology undetermined Narrative Course The patient was feeling palpitations while the monitor revealed a normal sinus rhythm. The palpitations may be in part due to anxiety but may also be from lidocaine used in the dental work. The blood work did not show any evidence of cardiac involvement. The patient may have dry socket pain but the patient believes she will do fine on Percocet and I will give her clindamycin for 7 days. She will get off work for 4 days. Diagnosis Primary Impression: Pain, dental Additional Impressions: Heart palpitations Anxiety Med/Other Pt SpecificInfo: Prescription(s) given Scripts Clindamycin (Cleocin) 300 Mg Cap 300 MG PO Q6H for Infection for 7 Days, #28 CAP 0 Refills Prov: Art Saleh MD 03/05/17 Oxycodone-Acetaminophen (Percocet) 5-325 mg Tab 1-2 TAB PO Q6H Y for PAIN, #28 TAB 0 Refills Prov: Art Saleh MD 03/05/17 Disposition: 01 DISCHARGE HOME Condition: Stable Art Saleh MD Mar 04, 2017 23:52
[2017-03-05] MEDS ORDERED: KETOROLAC TROMETHAMINE 60 MG/2 ML (IM) VIAL IVP ONE
[2017-03-05 00:03] VITALS: BP 154/88; PULSE 83; RESP 20; O2SAT 99
[2017-03-05 00:05] LABS: AUTOMATED NEUTROPHIL # 5.6 TH/MM3 (1.8-7.7); BASOPHIL # 0.3 TH/MM3 (0-0.2); BASOPHIL % 3.9 % (0.0-2.0); EOSINOPHIL # 0.1 TH/MM3 (0-0.4); HEMATOCRIT 34.4 % (35.0-46.0); HEMO FLAGS DIFF FINAL; LYMPH % 24.4 % (9.0-44.0); LYMPHOCYTE # 2.2 TH/MM3 (1.0-4.8); MEAN CELL VOLUME 80.2 FL (80.0-100.0); MEAN CORPUSCULAR HEMOGLOBIN 25.9 PG (27.0-34.0); MEAN CORPUSCULAR HGB CONC 32.3 % (32.0-36.0); MONO % 7.9 % (0.0-8.0); NEUT % 62.8 % (16.0-70.0); PLATELET COUNT 413 TH/MM3 (150-450); RED BLOOD COUNT 4.29 MIL/MM3 (4.00-5.30); RED CELL DISTRIBUTION WIDTH 14.7 % (11.6-17.2); WHITE BLOOD COUNT 8.9 TH/MM3 (4.0-11.0)
[2017-03-05] MEDS ORDERED: LANTUS2P SQ (00:14)
[2017-03-05 00:15] LABS: CHLORIDE 103 MEQ/L (98-107); POTASSIUM 3.8 MEQ/L (3.5-5.1); SODIUM (NA) 138 MEQ/L (136-145)
[2017-03-05] MEDS ORDERED: LISI10TA3 PO (00:15)
[2017-03-05] MEDS ORDERED: ONDANSETRON HCL 4 MG/2 ML VIAL IV ONE (00:15)
[2017-03-05] MEDS ORDERED: LEVO50TA4 PO (00:15)
[2017-03-05] MEDS ORDERED: HYDROmorphone HCL PF 1 MG/ML VIAL IVP ONE (00:15)
[2017-03-05] MEDS ORDERED: CLINDAMYCIN INJ 600 MG in SODIUM CHLORIDE 0.9% INJ 100 ML IV ONE (00:15)
[2017-03-05 00:18] LABS: ANION GAP 8 MEQ/L (5-15); BICARBONATE 27.3 MEQ/L (21.0-32.0); BLOOD UREA NITROGEN 11 MG/DL (7-18); MAGNESIUM 2.2 MG/DL (1.5-2.5)
[2017-03-05 00:21] LABS: GLOMERULAR FILTRATION RATE 93 ML/MIN (>89)
[2017-03-05 00:25] LABS: CREATINE KINASE 80 U/L (26-192)
[2017-03-05 00:26] LABS: BETA HCG QUANT LESS THAN 1 MIU/ML (0-5)
--- NOTE | 2017-03-05 00:34 | RADRPT ---
EXAM DATE/TIME: 03/04/2017 23:59 [facility] COMPARISON: No previous studies available for comparison. INDICATIONS : Irregular heart rate today MEDICAL HISTORY : None. SURGICAL HISTORY : None. ENCOUNTER: Initial ACUITY: 1 day PAIN SCORE: 0/10 LOCATION: Bilateral chest FINDINGS: PA and lateral views of the chest demonstrate the lungs to be symmetrically aerated without evidence of mass, infiltrate or effusion. The cardiomediastinal contours are unremarkable. Osseous structure s are intact. CONCLUSION: No acute cardiopulmonary disease. Reg Wells MD on March 05, 2017 at 0:33 Board Certified Radiologist. This report was verified electronically.
[2017-03-05] MEDS ORDERED: PERC5TAB12 PO (00:55)
[2017-03-05] MEDS ORDERED: CLEO300C2 PO (00:55)
[2017-03-05 01:31] VITALS: BP 112/74
--- NOTE | 2017-03-05 16:27 | EKG ---
Date Performed: 03/04/2017 Time Performed: 23:34:14 PTAGE: 42 years EKG: Sinus rhythm BORDERLINE LEFT AXIS DEVIATION BORDERLINE ECG INTERPRETATION BASED ON A DEFAULT AGE OF 42 YEARS PREVIOUS TRACING : 09/09/2016 05.30 DOCTOR: Lis Bolton Interpretating Date/Time 03/05/2017 16:26:39
== END 2017-03-05 01:39 | disposition home or self-care (01) ==
LOC: PHED 23:15
DX: K08.89 Other specified disorders of teeth and supporting structures (principal); R00.2 Palpitations; F41.9 Anxiety disorder, unspecified; E11.9 Type 2 diabetes mellitus without complications; K21.9 Gastro-esophageal reflux disease without esophagitis; Z88.0 Allergy status to penicillin
CPT/HCPCS: 71020; 80048; 82550; 83735; 84484; 84702; 85025; 93005; 96365; 96375; 99285; J1170; J2405

== ENCOUNTER 2017-10-30 21:34 | Emergency (ER) | payer SELFPAY ==
[~2017-10-30 21:34] MED LIST changes: +LANTUS2P SQ; +LEVO50TA4 PO; -LEVO75TA3 PO; +LISI10TA3 PO; -PROV10TA PO
[2017-10-30 21:37] VITALS: BP 151/81; PULSE 91; RESP 18; TEMP 99; O2SAT 99
--- NOTE | 2017-10-30 21:46 | PD ---
HPI Chief Complaint: Headache Time Seen by Provider: 21:41 Travel History International Travel<30 days: No Contact w/Intl Traveler<30days: No Traveled to known affect area: No History of Present Illness HPI 42-year-old female with history of hypertension and diabetes presents the emergency department for evaluation of a headache, elevated blood pressure, and elevated glucose. Patient states that today she was not feeling right. She had a generalized headache. Her blood pressure was higher than usual. She states that her blood glucose was also greater than 300. She states she is drank large amount of water and attempt to reduce her blood glucose. Patient states she has been compliant with her metformin and Lantus regimen. Patient states she did stop taking lisinopril because she ran out of this. About an hour and a half prior to arrival, patient took half of 1 of her husbands lisinopril. She denies any nausea vomiting. No focal deficits weakness. She is not on any anticoagulation therapy. She has no other symptoms to report at this time. PFSH Past Medical History Anxiety: Yes Depression: Yes Heart Rhythm Problems: No Cardiac Catheterization: No Cardiovascular Problems: Yes High Cholesterol: No Chest Pain: Yes Congestive Heart Failure: No Diabetes: Yes Patient Takes Glucophage: No Diminished Hearing: No GERD: Yes Headaches: Yes Immunizations Current: Yes Migraines: Yes Sleep Apnea: Yes Thyroid Disease: Yes (HYPO) PNEUMOCCOCAL Vaccine (Year): 2 ?: Not : 3 Para: 3 Tubal Ligation: Yes Past Surgical History Abdominal Surgery: Yes (TUBAL) Cholecystectomy: Yes Coronary Artery Bypass Graft: No Gynecologic Surgery: Yes Family History Family Myocardial Infarction: Yes Social History Alcohol Use: No (DENIES) Tobacco Use: No Substance Use: No Allergies-Medications (Allergen,Severity, Reaction): Coded Allergies: amoxicillin (Unverified Allergy, Severe, "HOT FLASHES", 10/30/17) ketorolac (Unverified Allergy, Severe, ANXIETY, 10/30/17) meperidine (Unverified Allergy, Severe, RASH, 10/30/17) ranitidine (Unverified Allergy, Severe, SOB, 10/30/17) omeprazole (Unverified Allergy, Unknown, 10/30/17) Reported Meds & Prescriptions Reported Meds & Active Scripts Active Reported Lantus Inj (Insulin Glargine) 1,000 Unit/10 Ml Vial 44 Units SQ DAILY Metformin (Metformin HCl) 1,000 Mg Tab 1,000 Mg PO DAILY With a meal Levothyroxine (Levothyroxine Sodium) 50 Mcg Tab 50 Mcg PO DAILY Tagamet Hb (Cimetidine) 200 Mg Tab 200 Mg PO DAILY Review of Systems Except as stated in HPI: all other systems reviewed are Neg Physical Exam Narrative GENERAL: Well-nourished female patient, lying in bed, in no acute distress SKIN: Focused skin assessment warm/dry. HEAD: Atraumatic. Normocephalic. EYES: Pupils equal and round. No scleral icterus. No injection or drainage. EOMI. ENT: No nasal bleeding or discharge. Mucous membranes pink and moist. NECK: Trachea midline. No JVD. No nuchal rigidity. No cervical spine tenderness. CARDIOVASCULAR: Regular rate and rhythm. No murmur appreciated. RESPIRATORY: No accessory muscle use. Diminished, likely due to girth to auscultation. Breath sounds equal bilaterally. GASTROINTESTINAL: Abdomen soft, non-tender, nondistended. Hepatic and splenic margins not palpable. MUSCULOSKELETAL: No obvious deformities. No clubbing. No cyanosis. No edema. NEUROLOGICAL: Awake and alert. No obvious cranial nerve deficits. Motor grossly within normal limits. Normal speech. PSYCHIATRIC: Appropriate mood and affect; insight and judgment normal. Data Data Last Documented VS Vital Signs Date Time Temp Pulse Resp B/P (MAP) Pulse Ox O2 Delivery O2 Flow Rate FiO2 10/30/17 22:13 99 Room Air 10/30/17 21:59 86 16 10/30/17 21:37 99.0 Orders Orders Complete Blood Count With Diff (10/30/17 22:03) Basic Metabolic Panel (Bmp) (10/30/17 22:03) Ct Brain W/O Iv Contrast(Rout) (10/30/17 22:03) Ecg Monitoring (10/30/17 22:03) Iv Access Insert/Monitor (10/30/17 22:03) Oximetry (10/30/17 22:03) Sodium Chloride 0.9% Flush (Ns Flush) (10/30/17 22:15) Diphenhydramine Inj (Benadryl Inj) (10/30/17 22:15) Metoclopramide Inj (Reglan Inj) (10/30/17 22:15) Sodium Chlor 0.9% 1000 Ml Inj (Ns 1000 M (10/30/17 22:03) Dexamethasone Inj (Decadron Inj) (10/30/17 22:15) Urinalysis - C+S If Indicated (10/30/17 22:08) MDM Medical Decision Making Medical Screen Exam Complete: Yes Emergency Medical Condition: Yes Medical Record Reviewed: Yes Differential Diagnosis Hypertensive urgency versus hypertension versus electrolyte abnormality versus headache versus migraine versus less likely intracranial hemorrhage Narrative Course 42-year-old female presents emergency department for evaluation of headache, elevated blood glucose, and elevated blood pressure. Patient appears without distress. Her neuro exam is nonfocal. Patient's blood pressure is elevated but not critically high. She is treated for headache. CT imaging of her brain is ordered. 2300 patient is signed out to my attending physician. She will disposition patient as she deems appropriate. Condition: Stable Anjelica Jarvis October 30, 2017 21:46
[2017-10-30 21:59] VITALS: BP 153/85; PULSE 86; RESP 16; O2SAT 100
[2017-10-30] MEDS ORDERED: METF1000 PO (22:03)
[2017-10-30] MEDS ORDERED: SODIUM CHLOR 0.9% 1000 ML INJ 1,000 ML IV ONE (22:03)
[2017-10-30] MEDS ORDERED: LANTUS2P SQ (22:03)
[2017-10-30 22:13] VITALS: O2SAT 99
[2017-10-30] MEDS ORDERED: METOCLOPRAMIDE HCL 10 MG/2 ML VIAL IVP ONE (22:15)
[2017-10-30] MEDS ORDERED: SODIUM CHLORIDE 0.9% FLUSH 10 ML FLUSH IVF PRN (22:15)
[2017-10-30] MEDS ORDERED: DEXAMETHASONE SOD PHOS 4 MG/ML VIAL IV PUSH ONE (22:15)
[2017-10-30] MEDS ORDERED: diphenhydrAMINE HCL 50 MG/ML VIAL IVP ONE (22:15)
--- NOTE | 2017-10-30 22:51 | RADRPT ---
EXAM DATE/TIME: 10/30/2017 22:36 [facility] COMPARISON: No previous studies available for comparison. INDICATIONS : Cephalgia. RADIATION DOSE: 56.35 CTDIvol (mGy) MEDICAL HISTORY : Cardiovascular disease. Diabetes. SURGICAL HISTORY : Tubal ligation. ENCOUNTER: Initial ACUITY: 1 day PAIN SCALE: 10/10 LOCATION: cranial TECHNIQUE: Multiple contiguous axial images were obtained of the head. Using automated exposure control and adj ustment of the mA and/or kV according to patient size, radiation dose was kept as low as reasonably a chievable to obtain optimal diagnostic quality images. DICOM format image data is available electro nically for review and comparison. FINDINGS: CEREBRUM: The ventricles are normal for age. No evidence of midline shift, mass lesion, hemorrhage or acute in farction. No extra-axial fluid collections are seen. POSTERIOR FOSSA: The cerebellum and brainstem are intact. The 4th ventricle is midline. The cerebellopontine angle i s unremarkable. EXTRACRANIAL: The visualized portion of the orbits is intact. SKULL: The calvaria is intact. No evidence of skull fracture. CONCLUSION: No acute intracranial disease. Kimani Wallace MD on October 30, 2017 at 22:48 Board Certified Radiologist. This report was verified electronically.
[2017-10-30 23:04] LABS: AUTOMATED NEUTROPHIL # 5.7 TH/MM3 (1.8-7.7); BASOPHIL % 0.4 % (0.0-2.0); EOSINOPHIL # 0.1 TH/MM3 (0-0.4); HEMATOCRIT 34.3 % (35.0-46.0); HEMOGLOBIN 11.3 GM/DL (11.6-15.3); LYMPH % 33.3 % (9.0-44.0); LYMPHOCYTE # 3.4 TH/MM3 (1.0-4.8); MEAN CELL VOLUME 79.9 FL (80.0-100.0); MEAN CORPUSCULAR HEMOGLOBIN 26.4 PG (27.0-34.0); MEAN PLATELET VOLUME 8.6 FL (7.0-11.0); MONOCYTE # 0.9 TH/MM3 (0-0.9); NEUT % 56.3 % (16.0-70.0); PLATELET COUNT 412 TH/MM3 (150-450); RED BLOOD COUNT 4.29 MIL/MM3 (4.00-5.30); WHITE BLOOD COUNT 10.1 TH/MM3 (4.0-11.0)
[2017-10-30 23:06] LABS: BILIRUBIN, URINE NEG (NEG); BLOOD, URINE NEG (NEG); GLUCOSE,URINE 150 mg/dL (NEG); KETONE, URINE NEG (NEG); NITRITE,URINE NEG (NEG); URINE COLOR LIGHT-YELLOW (YELLW/STRAW); URINE LEUKOCYTE ESTERASE NEG (NEG)
[2017-10-30 23:24] LABS: BACTERIA, URINE RARE /hpf; RBC, URINE 0-3 /hpf (0-3); SQUAMOUS EPITHELIAL CELL URINE 0-5 /hpf (0-5)
[2017-10-30 23:25] LABS: BICARBONATE 26.8 MEQ/L (21.0-32.0); CREATININE 0.96 MG/DL (0.50-1.00)
[2017-10-30 23:44] VITALS: BP 122/74
--- NOTE | 2017-10-30 23:44 | PD ---
Physical Exam Narrative GENERAL: 42-year-old female in no apparent distress SKIN: Focused skin assessment warm/dry. HEAD: Atraumatic. Normocephalic. EYES: Pupils equal and round. No scleral icterus. No injection or drainage. ENT: No nasal bleeding or discharge. Mucous membranes pink and moist. NECK: Trachea midline. No JVD. no meningeal signs CARDIOVASCULAR: Regular rate and rhythm. RESPIRATORY: No accessory muscle use. No increased effort GASTROINTESTINAL: Abdomen soft, non-tender, nondistended. MUSCULOSKELETAL: No obvious deformities. No clubbing. No cyanosis. No edema. NEUROLOGICAL: Awake and alert. No obvious cranial nerve deficits. Motor grossly within normal limits. Normal speech. PSYCHIATRIC: Appropriate mood and affect; insight and judgment normal. Data Data Last Documented VS Vital Signs Date Time Temp Pulse Resp B/P (MAP) Pulse Ox O2 Delivery O2 Flow Rate FiO2 10/30/17 23:44 10/30/17 22:13 99 Room Air 10/30/17 21:59 86 16 10/30/17 21:37 99.0 Orders Orders Complete Blood Count With Diff (10/30/17 22:03) Basic Metabolic Panel (Bmp) (10/30/17 22:03) Ct Brain W/O Iv Contrast(Rout) (10/30/17 22:03) Ecg Monitoring (10/30/17 22:03) Iv Access Insert/Monitor (10/30/17 22:03) Oximetry (10/30/17 22:03) Sodium Chloride 0.9% Flush (Ns Flush) (10/30/17 22:15) Diphenhydramine Inj (Benadryl Inj) (10/30/17 22:15) Metoclopramide Inj (Reglan Inj) (10/30/17 22:15) Sodium Chlor 0.9% 1000 Ml Inj (Ns 1000 M (10/30/17 22:03) Dexamethasone Inj (Decadron Inj) (10/30/17 22:15) Urinalysis - C+S If Indicated (10/30/17 22:08) Ed Discharge Order (10/30/17 23:41) Labs Laboratory Tests Test 10/30/17 22:10 White Blood Count 10.1 TH/MM3 Red Blood Count 4.29 MIL/MM3 Hemoglobin 11.3 GM/DL Hematocrit 34.3 % Mean Corpuscular Volume 79.9 FL Mean Corpuscular Hemoglobin 26.4 PG Mean Corpuscular Hemoglobin Concent 33.0 % Red Cell Distribution Width 17.0 % Platelet Count 412 TH/MM3 Mean Platelet Volume 8.6 FL Neutrophils (%) (Auto) 56.3 % Lymphocytes (%) (Auto) 33.3 % Monocytes (%) (Auto) 9.0 % Eosinophils (%) (Auto) 1.0 % Basophils (%) (Auto) 0.4 % Neutrophils # (Auto) 5.7 TH/MM3 Lymphocytes # (Auto) 3.4 TH/MM3 Monocytes # (Auto) 0.9 TH/MM3 Eosinophils # (Auto) 0.1 TH/MM3 Basophils # (Auto) 0.0 TH/MM3 CBC Comment DIFF FINAL Differential Comment Urine Color LIGHT-YELLOW Urine Turbidity CLEAR Urine pH 6.0 Urine Specific Makinen 1.008 Urine Protein NEG mg/dL Urine Glucose (UA) 150 mg/dL Urine Ketones NEG mg/dL Urine Occult Blood NEG Urine Nitrite NEG Urine Bilirubin NEG Urine Urobilinogen LESS THAN 2.0 MG/DL Urine Leukocyte Esterase NEG Urine RBC 0-3 /hpf Urine Squamous Epithelial Cells 0-5 /hpf Urine Bacteria RARE /hpf Microscopic Urinalysis Comment CULT NOT INDICATED Blood Urea Nitrogen 11 MG/DL Creatinine 0.96 MG/DL Random Glucose 205 MG/DL Calcium Level 9.0 MG/DL Sodium Level 137 MEQ/L Potassium Level 3.8 MEQ/L Chloride Level 101 MEQ/L Carbon Dioxide Level 26.8 MEQ/L Anion Gap 9 MEQ/L Estimat Glomerular Filtration Rate 78 ML/MIN [facility] Supervised Visit with CLARI: Yes Interpretation(s) CBC & BMP Diagram 10/30/17 22:10 Calcium Level 9.0 Last [address] 10/30/173 Signed Impressions: Service Date/Time: Monday, October 30, 2017 22:36 - CONCLUSION: No acute intracranial disease. Kimani Wallace MD Narrative Course I, Dr. silva, have reviewed the advance practice practitioner's documentation and am in agreement, met with the patient face to face, made the diagnosis, and the medical decision making was done by me. *My assessment and Findings: 42-year-old female presents with gradual onset headache. She denies any trauma. Initial workup here in the ER is normal. Patient's headache has resolved on recheck and she is wanting to go home. Diagnosis Primary Impression: Headache Qualified Codes: R51 - Headache Patient Instructions: General Instructions Additional Instruction: Return as needed, Tylenol as needed, follow with primary doctor Wednesday Med/Other Pt SpecificInfo: No Change to Meds Disposition: 01 DISCHARGE HOME Condition: Stable Joselin Silva MD October 30, 2017 23:44
== END 2017-10-30 23:52 | disposition home or self-care (01) ==
LOC: NEPE 21:34
DX: R51 Headache (principal); I10 Essential (primary) hypertension; E11.9 Type 2 diabetes mellitus without complications; Z79.4 Long term (current) use of insulin; Z88.0 Allergy status to penicillin; Z88.5 Allergy status to narcotic agent
CPT/HCPCS: 70450; 80048; 81001; 85025; 96361; 96374; 96375; 99284; J1100; J1200; J2765; J7030